=== PATIENT | male | born 1965 ===

== ENCOUNTER 2018-07-11 16:26 | Emergency (ER) | payer OTHER ==
[2018-07-11 17:22] VITALS: BMI 23.4
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
[2018-07-11 17:54] VITALS: TEMP 97.4; O2SAT 99
--- NOTE | 2018-07-11 17:55 | RAD ---
Date of service: 07/11/2018 PROCEDURE: Radiographs of the Left Shoulder HISTORY: shoulder pain COMPARISON: No prior. FINDINGS: BONES: No acute fracture. JOINTS: Acromioclavicular joint separation ; in the clavicle is approximately 9 mm cranial to the acromion. SOFT TISSUES: Normal. OTHER FINDINGS: None. IMPRESSION: Acromioclavicular joint separation.
[2018-07-11 18:29] VITALS: BP 112/76; PULSE 72; RESP 18
== END 2018-07-11 18:28 | disposition home or self-care (01) ==
LOC: ED 16:26
DX: S43.102A Unspecified dislocation of left acromioclavicular joint, initial encounter (principal); W19.XXXA Unspecified fall, initial encounter; Y93.55 Activity, bike riding
CPT/HCPCS: 73030; 96372; 99284; J1885